=== PATIENT | male | born 1960 | race Caucasian/White ===

== ENCOUNTER 2021-10-04 05:41 | Day surgery (SDC) | payer BC ==
[2021-09-30 16:29] VITALS: BMI 27.1
[2021-10-04 11:37] VITALS: TEMP 98
[2021-10-04 12:57] VITALS: BP 106/63; PULSE 60; RESP 14
== END 2021-10-04 12:15 | disposition home or self-care (01) ==
LOC: JASU-ENDO 05:41
PROVIDERS: ATTEND Internal Medicine Gastroenterology
PROC: 0D578ZZ Destruction of Stomach, Pylorus, Via Natural or Artificial Opening Endoscopic (ICD-10-PCS; principal; 2021-10-04 10:30)
DX: K31.A0 Gastric intestinal metaplasia, unspecified (principal)
CPT/HCPCS: 82962